=== PATIENT | male | born 1935 | race Caucasian/White ===

== ENCOUNTER 2020-09-18 11:59 | Day surgery (SDC) | payer MEDICARE, OTHER ==
[2020-09-13 11:31] LABS: BASOPHILS # (AUTO) 0.1 X10'3 (0-0.2); BASOPHILS % (AUTO) 1.5 % (0-1); EOSINOPHILS # (AUTO) 0.3 X10'3 (0-0.9); EOSINOPHILS % (AUTO) 4.5 % (0-6); HEMATOCRIT 34.1 % (42.0-52.0); HEMOGLOBIN 11.4 g/dl (14.0-17.9); LYMPHOCYTES # (AUTO) 1.4 X10'3 (1.1-4.8); LYMPHOCYTES % (AUTO) 24.1 % (21-51); MEAN CORPUSCULAR HEMOGLOBIN 29.8 PG (27.0-31.0); MEAN CORPUSCULAR HGB CONC 33.4 g/dL (33.0-36.5); MEAN CORPUSCULAR VOLUME 89.1 FL (78-98); MEAN PLATELET VOLUME 8.3 FL (7.4-10.4); MONOCYTES # (AUTO) 0.7 X10'3 (0-0.9); MONOCYTES % (AUTO) 11.8 % (2-12); NEUTROPHILS # (AUTO) 3.4 X10'3 (1.8-7.7); NEUTROPHILS % (AUTO) 58.1 % (42-75); PLATELET COUNT 143 X10'3 (140-440); RED BLOOD COUNT 3.82 X10'6 (4.70-6.10); RED CELL DISTRIBUTION WIDTH 13.4 % (11.5-14.5); WHITE BLOOD COUNT 5.9 X10'3 (4.5-11.0)
[2020-09-13 11:37] LABS: PARTIAL THROMBOPLASTIN TIME 26 SECONDS (22-32)
[2020-09-13 11:39] LABS: ALBUMIN 3.6 G/DL (3.4-5.0); ANION GAP 8 (8-16); BLOOD UREA NITROGEN 27 MG/DL (7-18); BUN/CREATININE RATIO 21.6 (5.4-32.0); CALCIUM 9.3 MG/DL (8.5-10.1); CHLORIDE 102 MMOL/L (99-107); CREATININE 1.25 MG/DL (0.60-1.10); GLUCOSE 89 MG/DL (70-104); POTASSIUM 4.2 MMOL/L (3.5-5.1); SODIUM 138 MMOL/L (135-145); TOTAL CARBON DIOXIDE 27.6 MMOL/L (24-32); eGFR 55 ML/MIN
[2020-09-18] VITALS (8 sets, daily range): BP systolic 153–193; BP diastolic 84–101
[~2020-09-18] VITALS: Ht 175.3 cm; Wt 83.3 kg
[2020-09-18] MEDS ORDERED: diphenhydrAMINE 25mg capsule PO PRN (12:20)
[2020-09-18] MEDS ORDERED: LIDOcaine/PRILOcaine 5gm cream TP ONE (12:20)
[2020-09-18] MEDS ORDERED: LORazepam 0.5 MG tablet PO PRN (12:20)
[2020-09-18] MEDS ORDERED: normal saline 1,000 ML IV SCH (12:20)
[2020-09-18] MEDS ORDERED: LEVO50TA8 PO (12:58)
[2020-09-18] MEDS ORDERED: LOSA50TA64 PO (12:58)
[2020-09-18] MEDS ORDERED: DONE10TA44 PO (12:58)
[2020-09-18] MEDS ORDERED: ASPI-1053 PO (12:59)
[2020-09-18] MEDS ORDERED: ATOR20TA PO (12:59)
[2020-09-18] MEDS ORDERED: nitroGLYCERIN-Tridil 50MG/D5W 250 ML IV ONE (13:58)
[2020-09-18] MEDS ORDERED: LIDOcaine 1% (10mg/ml)w/preservative injection 20ml MDV ONE (13:58)
[2020-09-18] MEDS ORDERED: iohexol 350MG/ML 100ml bottle IV ONE (13:58)
[2020-09-18] MEDS ORDERED: heparin 1,000unit/ml 10ml vial 10 ML ONE (13:58)
[2020-09-18] MEDS ORDERED: verapamil 2.5 mg/ml inj IV ONE (13:59)
[2020-09-18] MEDS ORDERED: NORMAL SALINE IV ONE (15:10)
== END 2020-09-18 16:40 | disposition home or self-care (01) ==
LOC: SSTAY O 11:59
PROVIDERS: ATTEND Internal Medicine Interventional Cardiology
DX: R94.39 Abnormal result of other cardiovascular function study (principal); I25.10 Atherosclerotic heart disease of native coronary artery without angina pectoris; I10 Essential (primary) hypertension; F03.90 Unspecified dementia, unspecified severity, without behavioral disturbance, psychotic disturbance, mood disturbance, and anxiety; E78.5 Hyperlipidemia, unspecified; E03.9 Hypothyroidism, unspecified; M17.10 Unilateral primary osteoarthritis, unspecified knee; Z79.899 Other long term (current) drug therapy; Z79.82 Long term (current) use of aspirin; Z79.01 Long term (current) use of anticoagulants; Z82.3 Family history of stroke; Z80.9 Family history of malignant neoplasm, unspecified
CPT/HCPCS: 36415; 80048; 85025; 85610; 85730; 93005; 93458; C1769; C1894; J1644; J2001; J7030; Q9967; A4620; J3490